=== PATIENT | male | born 1955 | race Caucasian/White ===

== ENCOUNTER 2019-09-27 10:52 | Inpatient (IN) | payer BC ==
[~2019-09-27] VITALS: Ht 175.3 cm; Wt 100.0 kg
[2019-09-27] VITALS (10 sets, daily range): BP systolic 115–151; BP diastolic 53–72
--- NOTE | 2019-09-27 09:30 | NUR ---
Pt attempting to get up stating he has to pee. Bond in place. Pt pulling on piv and ng tubing. PA notified, new orders for sitter and restraints if needed.
[~2019-09-27 10:52] MED LIST: ALD25T PO; ALPR-624 PO; DIPH-423 PO; FURO40TA4 PO; GABA-338 PO; LACT10SO PO; MIDO2.5T14 PO; MULT-1085 PO; NORCO10T PO; OMEP-84 PO
[2019-09-27 11:14] LABS: BASOPHILS # (AUTO) 0.1 X10'3 (0-0.2); BASOPHILS % (AUTO) 0.5 % (0-1); EOSINOPHILS % (AUTO) 0 % (0-6); HEMATOCRIT 46.9 % (42.0-52.0); HEMOGLOBIN 15.6 g/dl (14.0-17.9); LYMPHOCYTES # (AUTO) 0.7 X10'3 (1.1-4.8); LYMPHOCYTES % (AUTO) 4.3 % (21-51); MEAN CORPUSCULAR HEMOGLOBIN 34.7 PG (27.0-31.0); MEAN CORPUSCULAR HGB CONC 33.3 g/dL (33.0-36.5); MEAN CORPUSCULAR VOLUME 104.4 FL (78-98); MEAN PLATELET VOLUME 8.1 FL (7.4-10.4); MONOCYTES # (AUTO) 1.2 X10'3 (0-0.9); MONOCYTES % (AUTO) 7.8 % (2-12); NEUTROPHILS # (AUTO) 13.8 X10'3 (1.8-7.7); NEUTROPHILS % (AUTO) 87.4 % (42-75); PLATELET COUNT 162 X10'3 (140-440); RED CELL DISTRIBUTION WIDTH 14.4 % (11.5-14.5); WHITE BLOOD COUNT 15.8 X10'3 (4.5-11.0)
[2019-09-27 11:30] LABS: PARTIAL THROMBOPLASTIN TIME 28 SECONDS (22-32)
[2019-09-27 11:31] LABS: ALANINE AMINOTRANSFERASE 36 U/L (12-78); ALBUMIN 2.6 G/DL (3.4-5.0); ALBUMIN/GLOBULIN RATIO 0.7 (1.1-1.5); ALKALINE PHOSPHATASE 121 IU/L (46-116); ANION GAP 12 (8-16); ASPARTATE AMINO TRANSFERASE 55 U/L (10-37); BILIRUBIN,TOTAL 1.5 MG/DL (0.1-1.0); BLOOD UREA NITROGEN 14 MG/DL (7-18); BUN/CREATININE RATIO 6.6 (5.4-32.0); CALCIUM 8.6 MG/DL (8.5-10.1); CHLORIDE 110 MMOL/L (99-107); CREATININE 2.13 MG/DL (0.60-1.10); GLUCOSE 173 MG/DL (70-104); POTASSIUM 4.8 MMOL/L (3.5-5.1); SODIUM 147 MMOL/L (135-145); TOTAL PROTEIN 6.1 G/DL (6.4-8.2); eGFR 32 ML/MIN
[2019-09-27] MEDS ORDERED: normal saline 1000ML IV soln IV ONE (11:45)
[2019-09-27] MEDS ORDERED: levoFLOXACIN-Levaquin 500mg/D5 100 ML IV ONE (11:45)
[2019-09-27 11:53] LABS: CLARITY,URINE CLEAR (Clear); COLOR,URINE YELLOW (Yellow); GLUCOSE, URINE NEGATIVE (Neg); KETONES,URINE NEGATIVE (Neg); LEUKOCYTE ESTERASE ,URINE NEGATIVE (Neg); NITRITES, URINE NEGATIVE (Neg); OCCULT BLOOD,URINE SMALL (Neg); PROTEIN,URINE TRACE mg/dl (Neg)
[2019-09-27 11:57] LABS: UA COLLECTION TYPE STRAIGHT CATH
[2019-09-27 12:01] LABS: BACTERIA,URINE NONE SEEN /HPF (Neg); HYALINE CASTS 0-3 /LPF (NEGATIVE); MUCUS STRANDS NONE SEEN /LPF (Neg); RBC,URINE 0-2 /HPF (0-2); SQUAMOUS EPITHELIAL CELL,UR NONE SEEN /LPF (FEW); WBC,URINE 0-4 /HPF (0-4)
[2019-09-27] MEDS ORDERED: ZINC220C11 PO (12:05)
[2019-09-27] MEDS ORDERED: RIFA550T PO (12:05)
[2019-09-27] MEDS ORDERED: MAGN500C16 PO (12:05)
[2019-09-27] MEDS ORDERED: LACT10SO67 PO (12:08)
[2019-09-27] MEDS ORDERED: ondansetron/PF 4mg/2ml inj IV PRN (12:30)
--- NOTE | 2019-09-27 12:38 | NUR ---
NS IVF BOLUS OF 3L NS STOPPED BY GARO AUGUSTE AT THIS TIME. APPROX TOTAL OF 300 ML NS INFUSED.
[2019-09-27] MEDS ORDERED: ALPR1TAB7 PO (12:49)
[2019-09-27] MEDS: pantoprazole 40 MG vial IV SCH (12:53)
--- NOTE | 2019-09-27 13:40 | NUR ---
GARO Waite at bedside speaking with family at this time, patient to floor, no signs of distress noted.
--- NOTE | 2019-09-27 13:50 | NUR ---
Pt. to 2012 from ED via gurney. Transferred to bed via slide board. Skin assessed. Foam dressing placed to sacrum. MRSA swab obtained. NGT placed. Lactulose given. VSS except for low resp. rate. Non-rebreather mask taken off and nasal canula placed. Pt. sleepy but arousable. and sister at bedside.
[2019-09-27] MEDS ORDERED: tetanus & diphtheria toxoid (Td) vaccine 0.5ml IMVAC ONE (13:55)
[2019-09-27] MEDS ORDERED: TETanus/Pertussis (Acell)/Diphther VAC/PF (Tdap-Adult) 0.5ml syringe IMVAC ONE (14:00)
[2019-09-27] MEDS: sodium chloride 0.45% 1,000 ML IV SCH (14:20)
[2019-09-27] MEDS: lactulose 20gm/30ml cup PO SCH ×2 (14:20→20:32)
--- NOTE | 2019-09-27 15:24 | NUR ---
Bed well logging captain mud analysis placed on bed. SCD's placed on pt. TDAP given. Admission info. obtained from pt's .
--- NOTE | 2019-09-27 15:44 | NUR ---
Right hand irrigated and dressed. Jv Waite at bedside to assess wound.
--- NOTE | 2019-09-27 16:01 | NUR ---
TF Consult: Pt admit w/ ALOC, hepatic encephalopathy, hx end-stage liver disease, PNA, and not taking lactulose as Rx per [facility] note. Hx multiple prior paracentesis visits last 2013. Ammonia 155 on admit and Na 155 now down to 147. Pt has NG in place w/ high protein tube feeds to start today per [facility] request. EN recs below given pt needs. Will monitor for EN tolerance and diet advancement as medically indicated. Rec: 1. NGTF using Vital High Protein at 85ml/hr goal; to provide 2040ml fluid, 1714ml free water, 2040kcals, and 179g protein. Initiate at 20ml/hr and advance 20ml Q8 to goal as tolerated. 2. water flush 150ml Q4 3. PALB Q /; daily wts 4. routine bowel care; lactulose per MD 5. monitor for EN tolerance 6. advance diet as medically indicated to heart healthy Addendum: 09/27/19 at [address] Amended: Links added.
[2019-09-27] MEDS: ipratropium/albuterol 3ml nebule IH SCH ×3 (16:23→22:59)
--- NOTE | 2019-09-27 17:28 | NUR ---
Tube feeding started. Family at bedside.
--- NOTE | 2019-09-27 18:27 | NUR ---
Problems reprioritized. Patient report given, questions answered & plan of care reviewed with Emperatriz LE. Addendum: 09/27/19 at 1827 by Faith Negrete RN Amended: Links added.
--- NOTE | 2019-09-27 18:30 | NUR ---
Patient in room CICU 2011. I have received report from Faith LE and had the opportunity to ask questions and assume patient care.
[2019-09-27] MEDS: morphine 4 MG/ML inj SYRINge IV PRN (19:47)
[2019-09-27] MEDS: rifaximin 550mg tablet PO SCH (20:31)
[2019-09-28] VITALS (24 sets, daily range): BP systolic 128–176; BP diastolic 56–83
[2019-09-28] MEDS: morphine 4 MG/ML inj SYRINge IV PRN ×4 (00:06→14:10)
--- NOTE | 2019-09-28 01:08 | NUR ---
Pt passing copious amounts of gas.
[2019-09-28 04:57] LABS: BASOPHILS % (AUTO) 0.2 % (0-1); EOSINOPHILS # (AUTO) 0.1 X10'3 (0-0.9); EOSINOPHILS % (AUTO) 0.4 % (0-6); HEMATOCRIT 40.9 % (42.0-52.0); HEMOGLOBIN 14.1 g/dl (14.0-17.9); LYMPHOCYTES # (AUTO) 1.5 X10'3 (1.1-4.8); MEAN CORPUSCULAR HGB CONC 34.5 g/dL (33.0-36.5); MEAN CORPUSCULAR VOLUME 101.3 FL (78-98); MEAN PLATELET VOLUME 8.6 FL (7.4-10.4); MONOCYTES # (AUTO) 1.4 X10'3 (0-0.9); MONOCYTES % (AUTO) 10.6 % (2-12); NEUTROPHILS # (AUTO) 9.8 X10'3 (1.8-7.7); NEUTROPHILS % (AUTO) 76.8 % (42-75); PLATELET COUNT 125 X10'3 (140-440); RED BLOOD COUNT 4.04 X10'6 (4.70-6.10); RED CELL DISTRIBUTION WIDTH 13.8 % (11.5-14.5); WHITE BLOOD COUNT 12.8 X10'3 (4.5-11.0)
[2019-09-28 05:03] LABS: ALANINE AMINOTRANSFERASE 42 U/L (12-78); ALBUMIN 2.4 G/DL (3.4-5.0); ALBUMIN/GLOBULIN RATIO 0.8 (1.1-1.5); ALKALINE PHOSPHATASE 74 IU/L (46-116); ANION GAP 6 (8-16); ASPARTATE AMINO TRANSFERASE 99 U/L (10-37); BILIRUBIN,TOTAL 1.3 MG/DL (0.1-1.0); BLOOD UREA NITROGEN 27 MG/DL (7-18); CALCIUM 7.8 MG/DL (8.5-10.1); CHLORIDE 111 MMOL/L (99-107); CREATININE 1.69 MG/DL (0.60-1.10); GLUCOSE 147 MG/DL (70-104); MAGNESIUM 1.9 MG/DL (1.5-2.4); POTASSIUM 4.7 MMOL/L (3.5-5.1); PREALBUMIN 11.9 MG/DL (19-36); SODIUM 143 MMOL/L (135-145); TOTAL CARBON DIOXIDE 26.3 MMOL/L (24-32); TOTAL PROTEIN 5.3 G/DL (6.4-8.2); eGFR 41 ML/MIN
[2019-09-28] MEDS: ipratropium/albuterol 3ml nebule IH SCH ×5 (07:54→22:45)
[2019-09-28] MEDS: lactulose 20gm/30ml cup PO SCH ×5 (08:29→14:03)
[2019-09-28] MEDS: sodium chloride 0.45% 1,000 ML IV SCH (08:29)
[2019-09-28] MEDS: pantoprazole 40 MG vial IV SCH (08:29)
[2019-09-28] MEDS: rifaximin 550mg tablet PO SCH (08:29)
[2019-09-28] MEDS: CefTRIAXone 2gm/D5W 50ml 50 ML IV SCH (08:30)
[2019-09-28] MEDS: azithromycin/NS 500mg/250ml 250 ML IV SCH (08:30)
--- NOTE | 2019-09-28 09:30 | NUR ---
Spoke with Dr. Leos new order obtained for lactulose Q6.
[2019-09-28 09:49] LABS: LACTIC SEPSIS 1.6 MMOL/L (0.4-2.0)
--- NOTE | 2019-09-28 10:41 | NUR ---
During rounds with , new order obtained to increase lactulose q1hr until patient has a bowel movement.
--- NOTE | 2019-09-28 11:51 | NUR ---
Performed Bond Catheter care for patient
[2019-09-28] MEDS ORDERED: lactulose 20gm/30ml cup PO SCH (14:00)
--- NOTE | 2019-09-28 15:23 | NUR ---
Patient in room CICU 2011. I have received report from REY Stiles and had the opportunity to ask questions and assume patient care. Patient awake in bed and in no acute distress.
--- NOTE | 2019-09-28 18:10 | NUR ---
Problems reprioritized. Patient report given, questions answered & plan of care reviewed with REY Krause. Patient stable at transfer of care.
[2019-09-28] MEDS: lactobacillus rhamnosus 10,000 MMU CELLS/CAPSULE PO SCH (19:46)
[2019-09-28] MEDS: rifaximin 550mg tablet NG SCH (19:46)
[2019-09-28] MEDS: lactulose 20gm/30ml cup NG SCH (19:46)
--- NOTE | 2019-09-28 21:29 | NUR ---
MESSAGE LEFT AT IN-HOUSE WOUND CARE OFFICE TO PLEASE COME AND SEE THIS PATIENT FOR THE RIGHT HAND LACERATION TO HIS PALM. I AM NOT SURE IF THIS ORDER WAS ALREADY FOLLOWED UP ON THIS AFTERNOON SO I LEFT A MESSAGE REGARDLESS.
--- NOTE | 2019-09-28 22:05 | NUR ---
call to dominick albarran due to patient bp has been over 170's for the past three hurs. patient more alert and worder atching television. he is appropriate but a bit groggy. denies pain. no distress. order received for hydralazine prn
[2019-09-28] MEDS ORDERED: hydrALAZINE 20mg/ml inj. IV PRN (22:10)
[2019-09-28] MEDS ORDERED: hydrALAZINE 20mg/ml inj. IV ONE (22:14)
[2019-09-29] VITALS (24 sets, daily range): BP systolic 127–186; BP diastolic 3–77
[2019-09-29] MEDS: lactulose 20gm/30ml cup NG SCH ×6 (02:14→20:38)
[2019-09-29 04:27] LABS: BASOPHILS # (AUTO) 0.1 X10'3 (0-0.2); BASOPHILS % (AUTO) 0.7 % (0-1); EOSINOPHILS # (AUTO) 0.2 X10'3 (0-0.9); EOSINOPHILS % (AUTO) 2.3 % (0-6); HEMATOCRIT 41.2 % (42.0-52.0); HEMOGLOBIN 14.4 g/dl (14.0-17.9); LYMPHOCYTES # (AUTO) 1.3 X10'3 (1.1-4.8); LYMPHOCYTES % (AUTO) 16.6 % (21-51); MEAN CORPUSCULAR HEMOGLOBIN 35.5 PG (27.0-31.0); MEAN CORPUSCULAR HGB CONC 34.9 g/dL (33.0-36.5); MEAN CORPUSCULAR VOLUME 101.8 FL (78-98); MEAN PLATELET VOLUME 8.6 FL (7.4-10.4); MONOCYTES # (AUTO) 0.8 X10'3 (0-0.9); MONOCYTES % (AUTO) 10.9 % (2-12); NEUTROPHILS # (AUTO) 5.4 X10'3 (1.8-7.7); NEUTROPHILS % (AUTO) 69.5 % (42-75); PLATELET COUNT 114 X10'3 (140-440); RED BLOOD COUNT 4.05 X10'6 (4.70-6.10); RED CELL DISTRIBUTION WIDTH 13.4 % (11.5-14.5); WHITE BLOOD COUNT 7.8 X10'3 (4.5-11.0)
[2019-09-29 04:40] LABS: ALANINE AMINOTRANSFERASE 48 U/L (12-78); ALBUMIN 2.4 G/DL (3.4-5.0); ALBUMIN/GLOBULIN RATIO 0.8 (1.1-1.5); ALKALINE PHOSPHATASE 89 IU/L (46-116); ANION GAP 2 (8-16); ASPARTATE AMINO TRANSFERASE 107 U/L (10-37); BILIRUBIN,TOTAL 1.7 MG/DL (0.1-1.0); BLOOD UREA NITROGEN 16 MG/DL (7-18); BUN/CREATININE RATIO 13.6 (5.4-32.0); CALCIUM 8.3 MG/DL (8.5-10.1); CHLORIDE 114 MMOL/L (99-107); CREATININE 1.18 MG/DL (0.60-1.10); GLUCOSE 137 MG/DL (70-104); PHOSPHORUS 1.8 MG/DL (2.3-4.5); POTASSIUM 4.1 MMOL/L (3.5-5.1); SODIUM 148 MMOL/L (135-145); TOTAL CARBON DIOXIDE 31.8 MMOL/L (24-32); TOTAL PROTEIN 5.6 G/DL (6.4-8.2); eGFR 62 ML/MIN
--- NOTE | 2019-09-29 06:30 | NUR ---
Patient in room CICU 2011. I have received report from REY Krause and had the opportunity to ask questions and assume patient care.
[2019-09-29] MEDS: ipratropium/albuterol 3ml nebule IH SCH ×5 (07:30→22:55)
[2019-09-29] MEDS: pantoprazole 40 MG vial IV SCH (07:52)
[2019-09-29] MEDS: CefTRIAXone 2gm/D5W 50ml 50 ML IV SCH (07:53)
[2019-09-29] MEDS: rifaximin 550mg tablet NG SCH ×2 (07:53→20:37)
[2019-09-29] MEDS: lactobacillus rhamnosus 10,000 MMU CELLS/CAPSULE PO SCH ×2 (07:53→20:37)
[2019-09-29] MEDS: sodium chloride 0.45% 1,000 ML IV SCH (07:54)
[2019-09-29] MEDS: azithromycin/NS 500mg/250ml 250 ML IV SCH (08:51)
[2019-09-29] MEDS ORDERED: CADD PCA waste documentation MC PRN (10:35)
[2019-09-29] MEDS ORDERED: naloxone 0.4 mg/ml inj IV PRN (10:35)
[2019-09-29] MEDS ORDERED: HYDROmorphone/NS 1 mg/ml CADD 50 ML IV SCH (11:00)
--- NOTE | 2019-09-29 11:02 | NUR ---
WOUND INFECTION EDUCATION PROVIDED BY WOUND CARE 1. Patient instructed to call their primary doctor, or go the ED immediately if any of the following symptoms occur: * Increased pain in wound * Increase in drainage from the wound * Redness in the skin surrounding the wound * Warmth in the skin surrounding the wound * Bleeding from the wound * Temperature of 101 or greater 2. If any of these occur while in the hospital tell a nurse immediately. Addendum: 09/29/19 at 1102 by Carol Robbins RN Amended: Links added.
--- NOTE | 2019-09-29 18:12 | NUR ---
Problems reprioritized. Patient report given, questions answered & plan of care reviewed with REY Krause.
[2019-09-30] VITALS (13 sets, daily range): BP systolic 126–149; BP diastolic 46–76
[2019-09-30] MEDS: lactulose 20gm/30ml cup NG SCH ×2 (02:00→08:56)
[2019-09-30 05:20] LABS: ALANINE AMINOTRANSFERASE 40 U/L (12-78); ALBUMIN 2.2 G/DL (3.4-5.0); ALBUMIN/GLOBULIN RATIO 0.8 (1.1-1.5); ALKALINE PHOSPHATASE 74 IU/L (46-116); ANION GAP 4 (8-16); ASPARTATE AMINO TRANSFERASE 78 U/L (10-37); BASOPHILS % (AUTO) 0.6 % (0-1); BILIRUBIN,TOTAL 2.4 MG/DL (0.1-1.0); BLOOD UREA NITROGEN 11 MG/DL (7-18); BUN/CREATININE RATIO 11.6 (5.4-32.0); CALCIUM 8.5 MG/DL (8.5-10.1); CHLORIDE 111 MMOL/L (99-107); CREATININE 0.95 MG/DL (0.60-1.10); EOSINOPHILS # (AUTO) 0.2 X10'3 (0-0.9); EOSINOPHILS % (AUTO) 2.6 % (0-6); GLUCOSE 118 MG/DL (70-104); HEMATOCRIT 40.4 % (42.0-52.0); HEMOGLOBIN 14.1 g/dl (14.0-17.9); LYMPHOCYTES # (AUTO) 1.5 X10'3 (1.1-4.8); LYMPHOCYTES % (AUTO) 19.9 % (21-51); MAGNESIUM 1.8 MG/DL (1.5-2.4); MEAN CORPUSCULAR HEMOGLOBIN 35.3 PG (27.0-31.0); MEAN CORPUSCULAR HGB CONC 34.8 g/dL (33.0-36.5); MEAN CORPUSCULAR VOLUME 101.4 FL (78-98); MEAN PLATELET VOLUME 8.9 FL (7.4-10.4); MONOCYTES # (AUTO) 0.7 X10'3 (0-0.9); MONOCYTES % (AUTO) 9.4 % (2-12); NEUTROPHILS % (AUTO) 67.5 % (42-75); PHOSPHORUS 2.5 MG/DL (2.3-4.5); PLATELET COUNT 115 X10'3 (140-440); RED BLOOD COUNT 3.99 X10'6 (4.70-6.10); RED CELL DISTRIBUTION WIDTH 13.3 % (11.5-14.5); SODIUM 146 MMOL/L (135-145); TOTAL CARBON DIOXIDE 30.8 MMOL/L (24-32); TOTAL PROTEIN 5.1 G/DL (6.4-8.2); WHITE BLOOD COUNT 7.4 X10'3 (4.5-11.0); eGFR 80 ML/MIN
--- NOTE | 2019-09-30 07:10 | NUR ---
received report from Ingrid LE
[2019-09-30] MEDS: ipratropium/albuterol 3ml nebule IH SCH ×2 (07:30→11:00)
[2019-09-30] MEDS: CefTRIAXone 2gm/D5W 50ml 50 ML IV SCH (08:56)
[2019-09-30] MEDS: pantoprazole 40 MG vial IV SCH (08:56)
[2019-09-30] MEDS: lactobacillus rhamnosus 10,000 MMU CELLS/CAPSULE PO SCH (08:57)
[2019-09-30] MEDS: azithromycin/NS 500mg/250ml 250 ML IV SCH (08:57)
[2019-09-30] MEDS: rifaximin 550mg tablet NG SCH (08:57)
[2019-09-30] MEDS ORDERED: LACT10SO67 PO (09:22)
[2019-09-30] MEDS ORDERED: LEVO500T2 PO (09:23)
--- NOTE | 2019-09-30 12:06 | NUR ---
Follow up: patient is now on regular diet, thin liquids. Ammonia down to 57 with lactulose and rifaximin. NG out. Appetite returning today, ate 75% of meal per documentation. Pending discharge today. Rec: 1. continue regular diet 2. weight per rx Addendum: 09/30/19 at [address] Amended: Links added.
--- NOTE | 2019-09-30 14:11 | NUR ---
Pt. discharged per Dr. Leos, discharge instructions and packet provided to pt. Informed to follow up with primary MD, wound care and physical therapy. Meds called in to [facility] on [address] per pt. request. Pending ride from . Addendum: 09/30/19 at 1415 by Miriam Torres RN IV removed, right hand laceration dressing changed per order. Final wound picture placed in chart.
== END 2019-09-30 13:25 | disposition home or self-care (01) | DRG 441 ==
LOC: ER 10:53 → ED HOLD 12:28 → UNDOADMIN 12:55 → ED HOLD 12:55 → CICU 2S 13:52
PROVIDERS: ADMIT Internal Medicine Critical Care Medicine; ATTEND Internal Medicine Critical Care Medicine
PROC: 3E0234Z Introduction of Serum, Toxoid and Vaccine into Muscle, Percutaneous Approach (ICD-10-PCS; principal; 2019-09-27)
DX: K72.90 Hepatic failure, unspecified without coma (principal); J18.9 Pneumonia, unspecified organism; N17.9 Acute kidney failure, unspecified; R73.03 Prediabetes; S61.411A Laceration without foreign body of right hand, initial encounter; G89.29 Other chronic pain; K76.9 Liver disease, unspecified; Z91.14 Patient's other noncompliance with medication regimen; Z91.19 Patient's noncompliance with other medical treatment and regimen; Z23 Encounter for immunization; Z90.49 Acquired absence of other specified parts of digestive tract; Z79.899 Other long term (current) drug therapy; V92.09XA Drowning and submersion due to fall off unspecified watercraft, initial encounter; Y93.89 Activity, other specified; Y92.89 Other specified places as the place of occurrence of the external cause; Y99.8 Other external cause status
CPT/HCPCS: 36415; 71045; 72128; 72131; 80053; 81001; 82140; 82948; 83605; 83735; 84100; 84134; 84145; 85025; 85610; 85730; 87040; 87081; 90715; 93005; 94640; 94760; 96365; 96375; 97112; 97161; 97530; 99285; C9113; G0378; J0360; J0456; J0696; J1170; J1956; J2270; J2405; J7030

== ENCOUNTER 2022-09-26 12:45 | Emergency (ER) | payer BC, MEDICARE ==
[~2022-09-26] VITALS: Ht 188 cm; Wt 111.4 kg
[~2022-09-26 12:45] MED LIST changes: -ALD25T PO; -ALPR-624 PO; +ALPR1TAB7 PO; -DIPH-423 PO; -GABA-338 PO; -LACT10SO PO; +LACT10SO67 PO; +MAGN500C4 PO; -MIDO2.5T14 PO; -NORCO10T PO; +RIFA550T PO
[2022-09-26 16:31] LABS: EOSINOPHILS # (AUTO) 0.2 X10'3 (0-0.9); HEMOGLOBIN 15.5 g/dl (14.0-17.9); RED BLOOD COUNT 4.26 X10'6 (4.70-6.10); RED CELL DISTRIBUTION WIDTH 14.4 % (11.5-14.5); WHITE BLOOD COUNT 4.6 X10'3 (4.5-11.0)
[2022-09-26 16:33] LABS: BASOPHILS % (AUTO) 0.6 % (0-1); EOSINOPHILS % (AUTO) 4.8 % (0-6); HEMATOCRIT 45.6 % (42.0-52.0); LYMPHOCYTES % (AUTO) 21.2 % (21-51); MEAN CORPUSCULAR HEMOGLOBIN 36.4 PG (27.0-31.0); MEAN PLATELET VOLUME 8.1 FL (7.4-10.4); MONOCYTES # (AUTO) 0.5 X10'3 (0-0.9); MONOCYTES % (AUTO) 10.1 % (2-12); NEUTROPHILS # (AUTO) 2.9 X10'3 (1.8-7.7); NEUTROPHILS % (AUTO) 63.3 % (42-75); PLATELET COUNT 140 X10'3 (140-440)
[2022-09-26 16:47] LABS: ALANINE AMINOTRANSFERASE 34 U/L (12-78); ALBUMIN 2.5 G/DL (3.4-5.0); ALKALINE PHOSPHATASE 193 IU/L (46-116); ANION GAP 7 (8-16); ASPARTATE AMINO TRANSFERASE 46 U/L (10-37); BILIRUBIN,TOTAL 4.7 MG/DL (0.1-1.0); BLOOD UREA NITROGEN 11 MG/DL (7-18); BUN/CREATININE RATIO 13.1 (5.4-32.0); CALCIUM 8.5 MG/DL (8.5-10.1); CHLORIDE 109 MMOL/L (99-107); CREATININE 0.84 MG/DL (0.60-1.10); GLUCOSE 98 MG/DL (70-104); POTASSIUM 3.7 MMOL/L (3.5-5.1); SODIUM 143 MMOL/L (135-145); TOTAL CARBON DIOXIDE 27.4 MMOL/L (24-32); eGFR > 90 ML/MIN
[2022-09-26 16:49] LABS: ALBUMIN/GLOBULIN RATIO 0.6 (1.1-1.5); TOTAL PROTEIN 6.5 G/DL (6.4-8.2)
[2022-09-26 16:51] VITALS: BP 167/71
[2022-09-26 17:51] LABS: PLATELET ESTIMATE NORMAL
[2022-09-26 17:52] LABS: ANISOCYTOSIS 1+; POIKILOCYTOSIS 1+
== END 2022-09-26 17:56 | disposition home or self-care (01) ==
LOC: ER 12:45
DX: S30.1XXA Contusion of abdominal wall, initial encounter (principal); E11.9 Type 2 diabetes mellitus without complications; G89.29 Other chronic pain; Z90.49 Acquired absence of other specified parts of digestive tract; Z72.89 Other problems related to lifestyle; Z79.899 Other long term (current) drug therapy; W18.39XA Other fall on same level, initial encounter; Y93.89 Activity, other specified; Y92.89 Other specified places as the place of occurrence of the external cause; Y99.8 Other external cause status
CPT/HCPCS: 36415; 74176; 80053; 85008; 85025; 85610; 86885; 86900; 86901; 99284